=== PATIENT | female | born 1955 | race Caucasian/White ===

== ENCOUNTER 2020-11-04 16:10 | Emergency (ER) | payer MEDICARE ==
--- NOTE | 2020-11-04 17:26 | EDM.PDOC ---
ED HPI GENERAL MEDICAL PROBLEM - General Chief Complaint: Respiratory Problem Stated Complaint: FEVER, ASTHMA Time Seen by Provider: 11/04/20 16:57 Source of Information: Reports: Patient, Family History Limitations: Reports: No Limitations - History of Present Illness INITIAL COMMENTS - FREE TEXT/NARRATIVE: 64 yo female presents to the ER with her spouse c/o progressively worsening cough. She was seen 5 days ago and started on z-pack. She took her last dose today. She continues productive cough. Last fever was 3 days ago 100.3. she has completed her COVID vaccine. She does have Mhx of asthma and 2 years ago she had a significant lung infection that was tx at [place] and has resolved. - Related Data Allergies Allergy/AdvReac Type Severity Reaction Status Date / Time Penicillins Allergy Rash Verified 11/04/20 16:33 Home Meds: Home Meds Albuterol Sulfate [Albuterol Sulfate Hfa] 8.5 gm IH Q4HR PRN 11/04/20 [History] Budesonide/Formoterol Fumarate [Symbicort 160-4.5 Mcg Inhaler] 2 puff IH BID 11/04/20 [History] Montelukast Sodium 10 mg PO BEDTIME 11/04/20 [History] PARoxetine HCL [Paroxetine ER] 25 mg PO DAILY 11/04/20 [History] metFORMIN [Glucophage XR] 500 mg PO DAILY 11/04/20 [History] Past Medical History HEENT History: Reports: None Cardiovascular History: Reports: Heart Murmur Respiratory History: Reports: Asthma, Other (See Below) Other Respiratory History: lung infection 3 years ago Gastrointestinal History: Reports: None TRAVEL AGENT History: Reports: Musculoskeletal History: Reports: None Neurological History: Reports: None Psychiatric History: Reports: Anxiety Endocrine/Metabolic History: Reports: Diabetes, Type II Hematologic History: Reports: None Immunologic History: Reports: None Oncologic (Cancer) History: Reports: None Dermatologic History: Reports: None - Infectious Disease History Infectious Disease History: Reports: Chicken Pox, Measles Other Infectious Disease History: covid vacc x 2 - Past Surgical History HEENT Surgical History: Reports: None Respiratory Surgical History: Reports: Other (See Below) Other Respiratory Surgeries/Procedures: broch Female Surgical History: Reports: Section Musculoskeletal Surgical History: Reports: None Social & Family History - Tobacco Use Tobacco Use Status *Q: Never Tobacco User - Caffeine Use Caffeine Use: Reports: Coffee - Recreational Drug Use Recreational Drug Use: No ED ROS GENERAL - Review of Systems Review Of Systems: See Below Constitutional: Reports: Fever, Fatigue HEENT: Reports: Sinus Problem Respiratory: Reports: Wheezing, Cough. Denies: Shortness of Breath Cardiovascular: Denies: Chest Pain GI/Abdominal: Denies: Abdominal Pain ED EXAM, GENERAL - Physical Exam Exam: See Below Exam Limited By: No Limitations General Appearance: Alert, WD/WN, No Apparent Distress Eye Exam: Bilateral Eye: EOMI, PERRL Ear Exam: Bilateral Ear: Canal Normal, TM normal Nose: Normal Inspection, Normal Mucosa, No Blood Throat/Mouth: Normal Inspection, Normal Lips, Normal Teeth, Normal Gums, Normal Oropharynx, Normal Voice, No Airway Compromise Head: Atraumatic, Normocephalic Neck: Normal Inspection, Supple, Non-Tender, Full Range of Motion. No: Lymphadenopathy (R), Lymphadenopathy (L) Respiratory/Chest: No Respiratory Distress, Rhonchi. No: Wheezing, Stridor Cardiovascular: Regular Rate, Rhythm, No Murmur GI/Abdominal: Soft, Non-Tender Course - Vital Signs Last Recorded V/S: Last Vital Signs Temp 36.7 C 11/04/20 16:27 Pulse 89 11/04/20 16:27 Resp 18 11/04/20 16:27 BP 145/79 H 11/04/20 16:27 Pulse Ox 97 11/04/20 16:27 - Orders/Labs/Meds Orders: Active Orders 24 hr Category Date Time Status Chest 2V [CR] Stat Exams 11/04/20 17:16 Taken Labs: Laboratory Tests 11/04/20 Range/Units 17:25 WBC 9.3 (4.5-11.0) K/uL RBC 4.43 (3.30-5.50) M/uL Hgb 14.1 (12.0-15.0) g/dL Hct 42.8 (36.0-48.0) % MCV 97 (80-98) fL MCH 32 H (27-31) pg MCHC 33 (32-36) % Plt Count 282 (150-400) K/uL Neut % (Auto) 45.5 (36-66) % Lymph % (Auto) 42.3 (24-44) % [place] % (Auto) 5.4 (2-6) % Eos % (Auto) 6.4 H (2-4) % Baso % (Auto) 0.4 (0-1) % - Re-Assessments/Exams Free Text/Narrative Re-Assessment/Exam: 11/04/20 18:07 wbc normal rested comfortably 11/04/20 18:08 Departure - Departure Time of Disposition: 18:08 Disposition: Home, Self-Care 01 Condition: Good Clinical Impression: Bronchitis, acute Qualifiers: Bronchitis organism: unspecified organism Qualified Code(s): J20.9 - Acute bronchitis, unspecified - Discharge Information *PRESCRIPTION DRUG MONITORING PROGRAM REVIEWED*: Not Applicable *COPY OF PRESCRIPTION DRUG MONITORING REPORT IN PATIENT FLAKITA: Not Applicable Instructions: Upper Respiratory Infection, Adult, [id number] Referrals: PCP,None [Primary Care Provider] - Forms: ED Department Discharge Additional Instructions: prednisone 20 mg tapering dose increase fluid intake with goal 1 Liter per day Ibuprofen as needed Sepsis Event Note (ED) - Evaluation Sepsis Screening Result: No Definite Risk - Focused Exam Vital Signs: Vital Signs Temp Pulse Resp BP Pulse Ox 11/04/20 16:27 36.7 C 89 18 145/79 H 97 - My Orders Last 24 Hours: My Active Orders 11/04/20 17:16 Chest 2V [CR] Stat - Assessment/Plan Last 24 Hours: My Active Orders 11/04/20 17:16 Chest 2V [CR] Stat
--- NOTE | 2020-11-06 10:16 | CR ---
CHEST: 2 view CLINICAL HISTORY:Cough COMPARISON:None FINDINGS: The heart size, pulmonary vascularity and hilar structures are normal. The right heart margin is ill-defined. There is some minimal patchy density on the lateral view overlying the heart. There is a small granuloma in the left midlung field. IMPRESSION: There is some patchy airspace disease in the right middle lobe. Right middle lobe pneumonic infiltrate is not excluded.
== END 2020-11-04 18:31 | disposition home or self-care (01) ==
LOC: JP.ED 16:10
DX: J20.9 Acute bronchitis, unspecified (principal); E11.9 Type 2 diabetes mellitus without complications; Z88.0 Allergy status to penicillin; Z79.84 Long term (current) use of oral hypoglycemic drugs
CPT/HCPCS: 36415; 71046; 71046-26; 85025; 99283; 99283-25